=== PATIENT | male | born 1980 | race Caucasian/White ===

== ENCOUNTER 2021-02-25 15:48 | Emergency (ER) | payer SELFPAY ==
--- NOTE | 2021-02-25 17:03 | EDM.PDOC ---
ED HPI GENERAL MEDICAL PROBLEM - General Chief Complaint: Genitourinary Problem Stated Complaint: GROIN PAIN Time Seen by Provider: 02/25/21 15:53 Source of Information: Reports: Patient History Limitations: Reports: No Limitations - History of Present Illness INITIAL COMMENTS - FREE TEXT/NARRATIVE: The patient presents with right testicular pain. He says today he was planting some trees and he lifted a heavy bundle of them. He developed pain in his right groin. He went to the [facility] and they did an exam and he had severe pain to his right testicle. They were worried he may have a torsion and sent him over for an US. He says he has never had this happen before. He has no history of hernia. He has no fever, chills, cough, chest pain, shortness of breath, abdominal pain, nausea or vomiting. Onset: Sudden Duration: Hour(s): Location: Reports: Other (right testicle pain) Quality: Reports: Sharp Severity: Severe Improves with: Reports: None Worsens with: Reports: None Associated Symptoms: Reports: No Other Symptoms Right Groin Pain Score (Numeric/FACES): 5 - Related Data Allergies Allergy/AdvReac Type Severity Reaction Status Date / Time No Known Allergies Allergy Verified 02/25/21 15:56 Home Meds: Home Meds Hydrocodone/Acetaminophen [Hydrocodone-Acetamin 5-325 mg] 1 - 2 each PO Q6HR PRN #10 tablet 02/25/21 [Rx] Past Medical History - Past Health History Medical/Surgical History: Denies Medical/Surgical History Social & Family History - Tobacco Use Tobacco Use Status *Q: Current Every Day Tobacco User Years of Tobacco use: 25 Packs/Tins Daily: 1.5 Second Hand Smoke Exposure: No - Caffeine Use Caffeine Use: Reports: Coffee - Alcohol Use Days Per Week of Alcohol Use: 7 Number of Drinks Per Day: 3 Total Drinks Per Week: 21 - Recreational Drug Use Recreational Drug Use: No ED ROS GENERAL - Review of Systems Review Of Systems: See Below Constitutional: Reports: No Symptoms HEENT: Reports: No Symptoms Respiratory: Reports: No Symptoms Cardiovascular: Reports: No Symptoms Endocrine: Reports: No Symptoms GI/Abdominal: Reports: No Symptoms : Reports: Other (Right testicle pain) ED EXAM, RENAL/ - Physical Exam Exam: See Below Exam Limited By: No Limitations General Appearance: Alert, No Apparent Distress Ears: Normal External Exam Nose: Normal Inspection Head: Atraumatic, Normocephalic Neck: Normal Inspection Respiratory/Chest: No Respiratory Distress, Lungs Clear, Normal Breath Sounds Cardiovascular: Regular Rate, Rhythm, No Edema, No Murmur GI/Abdominal: Soft, Non-Tender, No Organomegaly, No Mass (Male) Exam: Other (Pain upon palpation to the right testicle without edema. No hernia was felt on exam) Course - Vital Signs Last Recorded V/S: Last Vital Signs Temp 97.8 F 02/25/21 15:57 Pulse 79 02/25/21 15:57 Resp 16 02/25/21 15:57 BP 151/93 H 02/25/21 15:57 Pulse Ox 96 02/25/21 15:57 - Orders/Labs/Meds Orders: Active Orders 24 hr Category Date Time Status Scrotum and Contents [US] Stat Exams 02/25/21 16:09 Taken - Re-Assessments/Exams Free Text/Narrative Re-Assessment/Exam: 02/25/21 17:04 I ordered an US and it shows no specific abnormality seen. 02/25/21 17:14 I examined him again and I could not feel a hernia. I will give him something for pain and have him follow up with Dr Rubin. Departure - Departure Time of Disposition: 17:15 Disposition: Home, Self-Care 01 Condition: Good Clinical Impression: Testicular pain, right - Discharge Information *PRESCRIPTION DRUG MONITORING PROGRAM REVIEWED*: Not Applicable *COPY OF PRESCRIPTION DRUG MONITORING REPORT IN PATIENT DENISA: Not Applicable Prescriptions: Hydrocodone/Acetaminophen [Hydrocodone-Acetamin 5-325 mg] 1 - 2 each PO Q6HR PRN #10 tablet PRN Reason: Pain Referrals: PCP,None [Primary Care Provider] - Aleshia Rollins MD [Physician] - 1 Week Forms: ED Department Discharge Additional Instructions: Ice your testicle 3 times per day for 2 days. Take tylenol or motrin for pain. If that does not help, try the hydrocodone. Follow up with Dr Rubin early next week if you are not better. Please return if you are worse. Sepsis Event Note (ED) - Evaluation Sepsis Screening Result: No Definite Risk - Focused Exam Vital Signs: Vital Signs Temp Pulse Resp BP Pulse Ox 02/25/21 15:57 97.8 F 79 16 151/93 H 96 - My Orders Last 24 Hours: My Active Orders 02/25/21 16:09 Scrotum and Contents [US] Stat - Assessment/Plan Last 24 Hours: My Active Orders 02/25/21 16:09 Scrotum and Contents [US] Stat
--- NOTE | 2021-02-26 08:16 | US ---
Testicular ultrasound: Multiple real-time images of both testicles were obtained. Technologist's note: Limited due to patient's pain tolerance Comparison: No prior testicular exam is available. Findings: Both testicles show no intratesticular abnormality. Arterial and venous blood flow are seen within both testicles. There is no hydrocele being seen. Measurements: Right testicle: 3.7 x 2.4 x 2.9 cm Left testicle: 3.6 x 2.5 x 2.8 cm. Impression: 1. No abnormality is appreciated on testicular ultrasound study. Diagnostic code #1 I agree with preliminary report from [facility], finalized on 02/25/21, 5:58 PM CDT
== END 2021-02-25 17:30 | disposition home or self-care (01) ==
LOC: JD.ED 15:48
DX: N50.811 Right testicular pain (principal); Z72.0 Tobacco use
CPT/HCPCS: 76870; 76870-26; 93975; 99283; 99284-25